=== PATIENT | male | born 2000 | race Caucasian/White ===

== ENCOUNTER 2020-12-24 06:21 | Day surgery (SDC) | payer BC ==
[2020-12-23 15:13] VITALS: BMI 27.0
[2020-12-24] MEDS ORDERED: Morphine 2 MG/ML VIAL ONE (06:48)
[2020-12-24] MEDS ORDERED: Fentanyl 100 MCG/2 ML VIAL ONE ×3 (06:48→10:15)
[2020-12-24] MEDS ORDERED: Midazolam HCl 2 mg/2 ml Vial ONE (07:50)
[2020-12-24] MEDS ORDERED: PROPOFOL 200 MG/20 ML VIAL ONE (08:14)
[2020-12-24] MEDS ORDERED: Ondansetron PF 4 MG/2 ML Vial ONE (08:14)
[2020-12-24] MEDS ORDERED: Dexamethasone 20 MG/5 ML VIAL ONE (08:14)
[2020-12-24] MEDS ORDERED: Lidocaine 1% PF 5 ML VIAL ONE (08:14)
[2020-12-24] MEDS ORDERED: AFRIN NASAL MIST 15 ML BOT ONE (08:44)
[2020-12-24] MEDS ORDERED: Meperidine HCl/PF 25 MG/ML VIAL ONE (09:02)
[2020-12-24] MEDS ORDERED: Hydrocodone-Acetamin 15 ML UDCUP ONE (10:55)
== END 2020-12-24 11:55 | disposition home or self-care (01) ==
LOC: SDC 06:21
PROVIDERS: ATTEND Student in an Organized Health Care Education/Training Program
PROC: 0CTPXZZ Resection of Tonsils, External Approach (ICD-10-PCS; principal; 2020-12-24)
DX: J03.91 Acute recurrent tonsillitis, unspecified (principal); J35.01 Chronic tonsillitis
CPT/HCPCS: 88304; J1100; J2175; J2250; J2270; J2405; J2704; J3010

== ENCOUNTER 2020-12-26 23:13 | Emergency (ER) | payer BC ==
[2020-12-27 00:11] LABS: #Eosinphils 0.2 thou/uL (0.0-0.7); #Lymphocytes 1.8 thou/uL (1.20-3.40); #Monocytes 1.1 thou/uL (0.11-0.59); #Neutrophils 16.1 thou/uL (1.40-6.50); %Basophils 0.1 % (0.0-1.0); %Eosinophils 0.9 % (0.0-10.0); %Lymphocytes 9.3 % (21.0-51.0); %Monocytes 5.5 % (0.0-10.0); %Neutrophils 84.1 % (42.0-75.0); Hemoglobin 13.6 g/dL (14.0-18.0); Mean Corpuscular HGB CONC 32.4 g/dL (32.0-36.0); Mean Corpuscular Hemoglobin 30.1 pg (27.0-31.0); Mean Platelet Volume 7.3 fL (7.4-10.4); Platelet Count 246 thou/uL (130-400); RBC Distribution Width 11.2 % (11.5-14.5); Red Blood Cell (RBC) Count 4.53 mill/uL (4.70-6.10); White Blood Cell (WBC) Count 19.1 thou/uL (4.8-10.8)
[2020-12-27] MEDS ORDERED: Ferric Subsulfate (ASTRINGYN) 8 GM VIAL ONE (01:09)
[2020-12-27] MEDS ORDERED: Midazolam HCl 2 mg/2 ml Vial ONE (01:24)
[2020-12-27] MEDS ORDERED: Fentanyl 100 MCG/2 ML VIAL ONE ×2 (01:24→02:24)
[2020-12-27] MEDS ORDERED: Lidocaine 1% PF 5 ML VIAL ONE (01:42)
[2020-12-27] MEDS ORDERED: Succinylcholine 200 MG/10 ml SYRINGE FS ONE (01:42)
[2020-12-27] MEDS ORDERED: PROPOFOL 200 MG/20 ML VIAL ONE (01:42)
[2020-12-27] MEDS ORDERED: Meperidine HCl/PF 25 MG/ML VIAL ONE (02:24)
[2020-12-27] MEDS ORDERED: Hydrocodone-Acetamin 15 ML UDCUP ONE ×2 (03:13)
== END 2020-12-27 01:29 | disposition admitted as inpatient to this hospital (09) ==
LOC: ERS 23:13
DX: K91.840 Postprocedural hemorrhage of a digestive system organ or structure following a digestive system procedure (principal)
CPT/HCPCS: 36415; 85025; 99284; J2175; J2250; J2704; J3010